=== PATIENT | male | born 1990 | race Caucasian/White ===

== ENCOUNTER 2017-05-23 10:47 | Day surgery (SDC) | payer BC ==
[~2017-05-23 10:47] MED LIST: Lactated Ringers 1,000 ML IV SCH
[2017-05-23] MEDS ORDERED: ceFAZolin 1 GM in Sodium Chloride 0.9% 50 ML IV ONE (11:54)
[2017-05-23] MEDS ORDERED: ceFAZolin 1 GM Vial IV ONE (12:00)
[2017-05-23] MEDS ORDERED: Propofol 200 MG/20 ML SDV IV ONE (13:30)
[2017-05-23] MEDS ORDERED: Ondansetron 4 MG/2 ML SDV IVPUSH ONE (13:30)
[2017-05-23] MEDS ORDERED: Ketamine 500 mg/10 ML MDV IV ONE (13:30)
[2017-05-23] MEDS ORDERED: Dexamethasone 4 MG/ML 5 ML MDV IVPUSH ONE (13:30)
[2017-05-23] MEDS ORDERED: Lactated Ringers 1,000 ML IV ONE (13:30)
[2017-05-23] MEDS ORDERED: Lidocaine 2% 100 MG/5 ML Syringe IVPUSH ONE (13:30)
[2017-05-23] MEDS ORDERED: Midazolam 1 MG/ML 2 ML SDV IV ONE (13:30)
[2017-05-23] MEDS ORDERED: fentaNYL 100 MCG/2 ML SDV IV ONE (13:30)
[2017-05-23] MEDS ORDERED: Ketorolac 30 MG/ML SDV IVPUSH ONE (13:30)
--- NOTE | 2017-05-23 13:48 | PCM.HP ---
H&P History of Present Illness - General Date of Service: 05/23/17 Admit Problem/Dx: Admission Diagnosis/Problem Admission Diagnosis/Problem Hernia Source of Information: Patient History Limitations: Reports: No Limitations - History of Present Illness Initial Comments - Free Text/Narative: Has noticed bulging in right groin for past couple of months. Had bilat hernias fixed as a . No symptoms of bowel obstruction. - Related Data Allergies/Adverse Reactions: Allergies Allergy/AdvReac Type Severity Reaction Status Date / Time No Known Allergies Allergy Verified 05/20/17 14:52 Home Medications: Home Meds Hydrochlorothiazide 25 mg PO BEDTIME 05/20/17 [History] Levothyroxine 125 mcg PO ACBREAKFAST 05/20/17 [History] Losartan [Cozaar] 100 mg PO DAILY 05/20/17 [History] atoMOXetine HCl [Strattera] 40 mg PO DAILY 05/20/17 [History] buPROPion [Wellbutrin XL] 300 mg PO DAILY 05/20/17 [History] Nortriptyline 10 mg PO BEDTIME 05/23/17 [History] Past Medical History HEENT History: Reports: Impaired Vision Respiratory History: Reports: Asthma Other Respiratory History: STATES EXERCISED INDUCED ASTHMA ONLY Gastrointestinal History: Reports: Irritable Bowel Syndrome Genitourinary History: Reports: None DENTAL LAB TECHNICIAN History: Reports: None Musculoskeletal History: Reports: None Neurological History: Reports: None Psychiatric History: Reports: ADD Endocrine/Metabolic History: Reports: Hypothyroidism Hematologic History: Reports: None Immunologic History: Reports: None Oncologic (Cancer) History: Reports: None - Infectious Disease History Infectious Disease History: Reports: Chicken Pox - Past Surgical History Head Surgeries/Procedures: Reports: None HEENT Surgical History: Reports: Oral Surgery, Tonsillectomy GI Surgical History: Reports: Hernia, Inguinal Other GI Surgeries/Procedures: BILATERAL INGUINAL HERNIORRAPHY INFANT. Social & Family History - Family History Family Medical History: Noncontributory - Tobacco Use Smoking Status *Q: Never Smoker - Caffeine Use Caffeine Use: Reports: Coffee, Energy Drinks, Soda, Tea - Alcohol Use Days Per Week of Alcohol Use: 2 Number of Drinks Per Day: 2 Total Drinks Per Week: 4 - Recreational Drug Use Recreational Drug Use: No Drug Use in Last 12 Months: No H&P Review of Systems - Review of Systems: Review Of Systems: ROS reveals no pertinent complaints other than HPI. Exam - Exam Exam: See Below - Vital Signs Vital Signs: Last Vital Signs Temp 998.1 F H 05/23/17 12:00 Pulse Resp 18 05/23/17 12:00 BP 128/88 05/23/17 12:00 Pulse Ox 100 05/23/17 12:00 Weight: 83.915 kg - Exam General: Alert, Oriented Lungs: Clear to Auscultation, Normal Respiratory Effort Cardiovascular: Regular Rate, Regular Rhythm GI/Abdominal Exam: Soft, Non-Tender, Hernia (reducible in right groin) (Male) Exam: Hernia (right inguinal). No: Testicular Mass *Q Meaningful Use (ADM) - VTE *Q VTE Criteria *Q: - Stroke *Q Stroke Criteria *Q: - AMI *Q AMI Criteria *Q: Problem List Initiated/Reviewed/Updated: Yes Orders Last 24hrs: Active Orders 24 hr Category Date Time Status Patient Status [ADT] Routine ADT 05/23/17 10:45 Ordered Patient to Empty Bladder [RC] ASDIRECTED Care 05/23/17 10:45 Active Verify Patient Consent Obtain [RC] ASDIRECTED Care 05/23/17 10:45 Active Lactated Ringers [Ringers, Lactated] 1,000 ml Med 05/23/17 10:45 Active IV ASDIRECTED Peripheral IV Insertion Adult [OM.PC] Routine Oth 05/23/17 10:45 Ordered Sequential Compression Device [OM.PC] Routine Oth 05/23/17 10:45 Ordered Medication Orders Lactated Ringer's (Ringers, Lactated) 1,000 mls @ 125 mls/hr IV ASDIRECTED [facility] Last Admin: 05/23/17 11:53 Dose: 125 mls/hr Assessment/Plan Comment:: Recurrent Right Inguinal Harnia Ok to proceed with repair using mesh. Risks and complications reviewed, consent obtained
[2017-05-23] MEDS ORDERED: Bupivacaine 0.25% 30 ML SDV INFILT ONE (14:07)
[2017-05-23] MEDS ORDERED: Lidocaine 1% with EPINEPHrine 1:100,000 20 ML MDV INFILT ONE (14:07)
[2017-05-23] MEDS ORDERED: ceFAZolin 1 GM Vial ONE (14:33)
--- NOTE | 2017-05-23 15:26 | PCM.OPNOTE ---
- General Post-Op/Procedure Note Date of Surgery/Procedure: 05/23/17 Operative Procedure(s): Repair Recurrent RIH with mesh Findings: Direct Hernia Pre Op Diagnosis: Recurrent RIH Post-Op Diagnosis: Same Anesthesia Technique: Local, MAC Primary Surgeon: Gerson Romo Anesthesia Provider: Yariel Sexton EBL in mLs: 10 Complications: None Condition: Good
[2017-05-23] MEDS ORDERED: Acetaminophen/HYDROcodone 325-5 MG Tab PO ONE (16:42)
--- NOTE | 2017-05-23 20:57 | OR ---
DATE OF OPERATION: 05/23/2017 SURGEON: Gerson Romo MD PREOPERATIVE DIAGNOSIS: Right recurrent inguinal hernia. POSTOPERATIVE DIAGNOSIS: Recurrent right inguinal hernia, direct. PROCEDURE: Repair of recurrent right inguinal hernia with mesh. ANESTHESIA: Local, MAC. DESCRIPTION OF PROCEDURE: The patient was brought to the operating room, after surgical site had been verified by myself and the patient. IV sedation was administered. Right groin was prepped and draped sterilely. IV antibiotics had been administered. A 50:50 mixture of 1% lidocaine with epinephrine and 0.25% Marcaine was infiltrated in the right groin region. An incision was made through his previous scar and extended through the subcutaneous tissue. A fair amount of subcutaneous scar tissue was encountered. External fascia was identified and opened in line with the external ring. Again a fair amount of scarring was present here. I was unable to identify the ilioinguinal nerve. The cord structures were dissected off the pubic tubercle and back to the level of the internal ring. The [place] drain was placed around these. A 3 cm direct inguinal hernia bulge was present with preperitoneal fat. This was reduced with 2-0 Vicryl to make visualization easier. A routine hernia repair was then performed using a large precut keyhole polypropylene mesh. This was secured to the pubic tubercle with 0 Prolene. Several more interrupted sutures were used to secured to Vadim's ligament inferiorly and this transition stitch made to the shelving edge of Poupart's ligament medial to the femoral vein. The edges of the mesh were brought together laterally, incorporating the cord and secured such that the tip of the small finger with snugly fit into the opening. The edges of the mesh were trimmed and placed beneath the external fascia. After the inferior edge was secured to Poupart's ligament, several interrupted 0 Prolene sutures were used to secure the superior edge of the muscle creating a tension-free repair. The wound was thoroughly irrigated and hemostasis assured. External fascia was closed with running 2-0 Vicryl. The subcutaneous tissue was reapproximated with interrupted 3-0 Vicryl. The skin was closed with a running 4-0 Vicryl subcuticular suture. Benzoin and Steri-Strips were placed and sterile dressing applied. The patient tolerated this procedure well. Testicles were in the scrotum following the procedure. ESTIMATED BLOOD LOSS: 10 mL. DISPOSITION: He returned to postanesthesia in stable condition. /[id number] 2051 YESICA/RAFAEL
== END 2017-05-23 16:53 | disposition home or self-care (01) ==
LOC: FB.SDS 10:47 → FB.MS 15:29 → FB.SDS 16:53
PROVIDERS: ATTEND Surgery
DX: K40.91 Unilateral inguinal hernia, without obstruction or gangrene, recurrent (principal); J45.909 Unspecified asthma, uncomplicated; E03.9 Hypothyroidism, unspecified; Z79.899 Other long term (current) drug therapy
CPT/HCPCS: 49520; A9270; C1781; J0690; J1100; J1885; J2250; J2405; J2704; J3010; J3490; J7120